=== PATIENT | male | born 1990 | race Caucasian/White ===

== ENCOUNTER 2018-03-08 17:49 | Emergency (ER) | payer MEDICAID ==
[2018-03-08] MEDS: DIPHENHYDRAMINE 50 MG INJ IV (19:01)
[2018-03-08] MEDS: SOD CHLORIDE 0.9% 1,000 ML IV (19:01)
[2018-03-08] MEDS: METOCLOPRAMIDE 10 MG INJ IV (19:01)
[2018-03-08] MEDS: LABETALOL HCL 20MG INJ IV (20:59)
[2018-03-08] MEDS: AMLODIPINE 10 MG TAB PO (23:34)
[2018-03-09 00:14] LABS: ANION GAP 12 (8-16); BLOOD UREA NITROGEN 10 mg/dl (7-20); CALCIUM 9.1 mg/dl (8.4-10.2); CARBON DIOXIDE 26 mmol/L (21-31); CHLORIDE 107 mmol/L (97-110); CREATININE 0.85 mg/dl (0.61-1.24); GLUCOSE 101 mg/dl (70-220); POTASSIUM 3.7 mmol/L (3.5-5.1); SODIUM 141 mmol/L (135-144)
== END 2018-03-09 00:02 | disposition home or self-care (01) ==
LOC: E/R 03-09 00:02
DX: I16.1 Hypertensive emergency (principal); I10 Essential (primary) hypertension; R40.2142 Coma scale, eyes open, spontaneous, at arrival to emergency department; R40.2362 Coma scale, best motor response, obeys commands, at arrival to emergency department; R40.2252 Coma scale, best verbal response, oriented, at arrival to emergency department
CPT/HCPCS: 70450; 80048; 93005; 96374; 96375; 99285-25